=== PATIENT | female | born 1980 | race Caucasian/White ===

== ENCOUNTER → 2017-08-21 | Outpatient (CLI) | payer OTHER ==
[~2017-08-21] MED LIST: BIRTH CONTROL; CIPRO 500MG TA500 MG PO; CLINDAMYCIN300 MG PO; CYMBALTA 20MG20 MG PO; MOTRIN 600600 MG/TAB PO; NO HOME MEDICATIONS; PERCOCET 325 MG1 TA2 PO; PRENATAL1 TA1 PO; VALIUM 5MG T5 MG/TAB PO; ZITHROMAX 250M250 MG PO; ZOLOFT 50MG50 MG PO
== END ==
LOC: COL.RAD 07:30
DX: N88.8 Other specified noninflammatory disorders of cervix uteri (principal)

== ENCOUNTER 2022-02-22 10:12 | Emergency (ER) | payer SELFPAY ==
[~2022-02-22] VITALS: Ht 167.6 cm; Wt 87.7 kg
[2022-02-22 10:24] VITALS: TEMP 98.6
[2022-02-22 11:19] VITALS: BP 122/74
[2022-02-22 12:22] VITALS: PULSE 68
== END 2022-02-22 12:22 | disposition home or self-care (01) ==
LOC: COL.ER 10:12
DX: H53.8 Other visual disturbances (principal); F17.200 Nicotine dependence, unspecified, uncomplicated